=== PATIENT | male | born 1970 | race Caucasian/White ===

== ENCOUNTER 2021-04-14 11:23 | Emergency (ER) | payer OTHER ==
[~2021-04-14] VITALS: Ht 172.7 cm; Wt 68.5 kg
== END 2021-04-14 15:25 | disposition home or self-care (01) ==
LOC: ER1 11:23
DX: U07.1 COVID-19 (principal); Z23 Encounter for immunization; Z88.8 Allergy status to other drugs, medicaments and biological substances
CPT/HCPCS: 99284; M0243